=== PATIENT | female | born 1955 | race Caucasian/White ===

== ENCOUNTER 2017-02-06 19:10 | Emergency (ER) | payer SELFPAY ==
[~2017-02-06] VITALS: Ht 157.5 cm; Wt 60.0 kg
[2017-02-06 19:23] VITALS: Ht 157.5 cm; Wt 60.0 kg
== END 2017-02-07 06:01 | disposition left against medical advice (07) ==
LOC: FTE 19:10
DX: Z53.21 Procedure and treatment not carried out due to patient leaving prior to being seen by health care provider (principal)